=== PATIENT | male | born 1975 | race Caucasian/White ===

== ENCOUNTER 2019-06-27 07:36 | Emergency (ER) | payer OTHER ==
[~2019-06-27] VITALS: Ht 193 cm; Wt 108.4 kg
--- NOTE | 2019-06-27 09:11 | NUR ---
FITNESS AND WELLNESS DIRECTOR: PT AMBULATORY TO ROOM FROM LOBBY
[2019-06-27] MEDS ORDERED: SODIUM CHLORIDE FLUSH 10ML SYR IVF ONE (09:30)
[2019-06-27] MEDS ORDERED: HYDROmorphone 1 MG/ML, 1ML INJ IVPush PRN (09:30)
[2019-06-27] MEDS ORDERED: ONDANSETRON 2MG/ML, 2ML IVPush ONE (09:30)
[2019-06-27] MEDS ORDERED: ONDANSETRON 2MG/ML, 2ML ONE (09:33)
[2019-06-27] MEDS ORDERED: HYDROmorphone 1 MG/ML, 1ML INJ ONE (09:33)
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
[2019-06-27] MEDS ORDERED: OMNIPAQUE 350 MG/ML, 100ML BOTTLE ONE (10:12)
[2019-06-27 10:23] LABS: BASOPHILS # (AUTO) 0.02 x10^3/uL (0-0.1); BASOPHILS % (AUTO) 0 % (0-1); EOSINOPHILS # (AUTO) 0.05 x10^3/uL (0-0.4); EOSINOPHILS % (AUTO) 1 % (1-7); LYMPHOCYTES # (AUTO) 0.86 x10^3/uL (1-3.4); LYMPHOCYTES % (AUTO) 11 % (22-44); MD NO; MEAN CORPUSCULAR HEMOGLOBIN 30.1 pg (27.5-34.5); MEAN CORPUSCULAR HGB CONC 33.3 g/dL (33.2-36.2); MEAN CORPUSCULAR VOLUME 90.5 fL (81-97); MEAN PLATELET VOLUME 8.7 fL (7.4-10.4); MONOCYTES % (AUTO) 5 % (2-9); NEUTROPHILS # (AUTO) 6.35 x10^3/uL (1.8-6.8); NEUTROPHILS % (AUTO) 83 % (42-75); PLATELET COUNT 195 x10^3/uL (130-400); RED BLOOD COUNT 4.94 x10^6/uL (4.38-5.82); RED CELL DISTRIBUTION WIDTH 12.9 % (9.4-14.8)
[2019-06-27 10:32] LABS: ALANINE AMINOTRANSFERASE 35 U/L (12-78); ALBUMIN 3.5 g/dL (3.4-5.0); ANION GAP 7 mmol/L (5-15); CALCIUM 8.2 mg/dL (8.5-10.1); CHLORIDE 104 mmol/L (98-107)
[2019-06-27 10:35] LABS: ALKALINE PHOSPHATASE 77 U/L (45-117); BILIRUBIN,TOTAL 0.5 mg/dL (0.2-1.0); TOTAL PROTEIN 6.8 g/dL (6.4-8.2)
--- NOTE | 2019-06-27 10:39 | NUR ---
PT REPORTS PAIN LEVEL DOWN FROM 8/10 TO 6/10 AT THIS TIME. PT A&O, RESPS EVEN AND UNLABORED. NEURO REMAINS INTACT. PT DENIES ANY NEEDS AT THIS TIME. AWAITING MD REVIEW OF CT SCANS AND DISPO AT THIS TIME.
[2019-06-27] MEDS ORDERED: KETOROLAC 60 MG/2 ML ONE (11:06)
[2019-06-27 11:12] VITALS: BP 121/72
[2019-06-27] MEDS ORDERED: KETOROLAC 30 MG/1 ML IVPush ONE (11:30)
== END 2019-06-27 11:30 ==
LOC: ED 11:24
DX: S16.1XXA Strain of muscle, fascia and tendon at neck level, initial encounter (principal); S20.219A Contusion of unspecified front wall of thorax, initial encounter; S30.1XXA Contusion of abdominal wall, initial encounter; V49.59XA Passenger injured in collision with other motor vehicles in traffic accident, initial encounter; Y93.89 Activity, other specified; Y92.89 Other specified places as the place of occurrence of the external cause; Y99.8 Other external cause status
CPT/HCPCS: 36415; 70486; 71260; 72125; 74177; 80053; 85025; 93005; 96374; 96375; 99285; J1170; J1885; J2405; Q9967